=== PATIENT | male | born 1955 | race Caucasian/White ===

== ENCOUNTER 2024-11-30 16:29 | Inpatient (IN) | payer MEDICARE, SELFPAY ==
[2024-11-30] VITALS (16 sets, daily range): BP systolic 96–157; BP diastolic 60–91; BMI 36.3; BMI 35.0
--- NOTE | 2024-11-30 11:56 | ED.CVA ---
History of Present Illness
General
Chief Complaint: CVA/TIA Symptoms
Source: patient
Exam Limitations: none
Time Seen by Provider: 11/30/24 11:40
Onset of Stroke Symptoms
Onset of symptoms known: No
Time pt last seen normal is known: No
History of Present Illness
History of Present Illness:
69-year-old male with history of strokes [facility] with onset of dizziness and left arm weakness. This was during rehab today. He states the dizziness has resolved but the left arm weakness has persisted. He also notes a
facial droop on the left side has been present for about a week. He tells me he is on Coumadin. His last INR was checked today however he does not know the results. He is on this for a valve replacement. He denies chest pain or shortness of
breath. He denies any new leg weakness. He denies any vision change or slurred speech. No other complaints
Phy Exam
Physical Exam
Physical Exam:
General: Well-appearing male no acute respiratory distress
HEENT: Normocephalic atraumatic subtle left facial droop
Heart: Regular rate and rhythm
Lungs: Clear no wheeze
Neurologic exam: Alert and oriented x 3 subtle left facial droop noted. There is left arm drift noted on exam. No ataxia noted. The bilateral lower extremities have good strength. There is no neglect. Visual hill intact. No dysarthria or
aphasia.
Extremities: Mild edema bilateral lower extremities
Scores
NIH Stroke Score
Level of Consciousness: 0 - Alert
LOC Questions: 0-Answers both correctly
LOC Commands: 0-Performs both correctly
Best Horizontal Gaze: 0-Normal
Visual Hill: 0=Normal, no visual loss
Facial Palsy: 1=Minor paralysis
Motor - Right Arm: 0=No drift 10 seconds
Motor - Left Arm: 2=Partial vs. gravity
Motor - Right Le-No drift 5 seconds
Motor - Left Le-No drift 5 seconds
Limb Ataxia: 0-Absent
Sensation: 0-Normal
Best Language: 0-No aphasia
Dysarthria: 0-Normal
Extinction and Inattention: 0-No abnormality
NIH Total Score:: 3
Course
Orders/Labs/Results
Orders:
Orders
11/30/24 11:43
Electrocardiogram (*1) Urgent
Reason for Study: Other
Other Reason for Exam: Possible Stroke
11/30/24 11:44
EKG- Treatment ONCE
11/30/24 11:50
Complete Blood Count/With Diff Urgent
Comprehensive Metabolic Panel Urgent
PTT Urgent
Prothrombin Time Urgent
Troponin I Urgent
11/30/24 11:56
CT Head W/o Iv Contrast Urgent
Comment:
Reason For Exam: dizzy, left arm weakness
Abnormal Lab Results
11/30/24
11:50
MCHC 31.8 L g/dL
(33.0-37.0)
RDW 15.9 H %
(11.5-14.5)
Plt Count 124 L 10^3/uL
(130-400)
MPV 11.3 H fL
(7.4-10.4)
Absolute Monos (auto) 0.7 H 10^3/uL
(0.1-0.6)
Lymphocytes % 19.4 L %
(20.5-51.1)
Monocytes % 10.2 H %
(1.7-9.3)
PT 31.2 H Sec
(11.4-14.6)
APTT 39.4 H Sec
(23.4-35.0)
Carbon Dioxide 31 H mmol/L
(22-30)
BUN 25 H mg/dl
(9-20)
Creatinine 1.4 H mg/dL
(0.7-1.3)
11/30/24 11:50
11/30/24 11:50
Vital Signs
Initial and Last Documented VS:
Initial Vital Signs
Pulse Resp
71 14
11/30/24 11:43 11/30/24 11:43
Last Documented Vital Signs
Pulse Resp BP Pulse Ox
62 11 157/78 98
11/30/24 14:00 11/30/24 14:00 11/30/24 14:00 11/30/24 14:00
MDM/Problems Addressed
Differential Diagnosis Includes:
Patient presents with dizziness and left arm weakness. Exact onset of symptoms unknown as he has had a facial droop for about a week. The weakness today however could be new. Concern for possible TIA versus stroke. He is not a TNK candidate
given uncertain onset and anticoagulated state. INR is pending. Vital signs are stable. EKG shows a right bundle branch block with a rate of 74 no ischemic changes.
*Pulse Oximetry
Patient hypoxic: no
*Critical Care Note
Total Time (30-74mins, 75-104mins- exclusive of procedures): Not Applicable
Update Note
Update Note:
CT head shows chronic infarcts. INR 3.03
I suspect patient may have had another stroke in the recent past. Will admit to hospital. Discussed with emergency room attending. Not a TNK candidate secondary to uncertain onset and anticoagulated state
ED Attending Note
-
Portions of this chart may have been created with voice recognition software.� Occasional wrong word or��sound alike� substitutions may have occurred due to the inherent limitations of voice recognition software.
Discharge Plan
Departure
Patient Disposition: Admit
Date of Disposition: 11/30/24
Time of Disposition: 15:15
Presentation/result/management discussed w/ accepting MD/DO: Hospitalist
Discharge Problem:
Acute cerebrovascular accident (CVA)
Prescriptions:
No Action
furosemide [Lasix] 40 mg Tablet
40 mg PO DAILY
carvedilol [Coreg] 25 mg Tablet
25 mg PO BID
acetaminophen [Tylenol] 325 mg Tablet
650 mg PO Q4HPRN PRN (Reason: mild pain)
atorvastatin [Lipitor] 20 mg Tablet
20 mg PO QPM
albuterol sulfate 2.5 mg /3 mL (0.083 %) Solution For Nebulization
2.5 mg INHALATION R Q6HPRN PRN (Reason: sob)
hydralazine 25 mg Tablet
25 mg PO TID
aspirin 81 mg Tablet,Delayed Release (Dr/Ec)
81 mg PO DAILY
warfarin 3 mg Tablet
3 mg PO QPM
magnesium hydroxide [Milk of Magnesia] 400 mg/5 mL Suspension
2,400 mg PO [id number] PRN (Reason: constipation)
bisacodyl [Dulcolax (bisacodyl)] 10 mg Suppository
10 mg SD DAILYPRN PRN (Reason: if no bm aftr mom)
Fleet Enema 19-7 gram/118 mL Enema
118 ml SD DAILYPRN PRN (Reason: if no bm aftr dulcalax)
gabapentin 300 mg Capsule
300 mg PO TID
lisinopril 5 mg Tablet
5 mg PO DAILY
cholecalciferol (vitamin D3) [Vitamin D3] 125 mcg (5,000 unit) Tablet
125 mcg PO TH
menthol-zinc oxide [Moisture Barrier Ointment] 0.44-20.6 % Ointment
1 applic TOPICAL TIDPRN PRN (Reason: sacrum)
[place] 3 Fish Oil 900-1,400 mg Capsule,Delayed Release(Dr/Ec)
1 cap PO DAILY
duloxetine 30 mg Capsule, Delayed Rel Sprinkle
30 mg PO BID
Referrals:
Rusty Mclain MD [Family Provider]
Interventions
Interventions:
*Risk Screen - Suicide Last Done: 11/30/24 11:47
*Neglect/Abuse Screening Last Done: 11/30/24 11:47
ED- Pulmonary Assessment Last Done: 11/30/24 11:58
ED- Neurological Assessment Last Done: 11/30/24 11:58
ED- Cardiac Assessment Last Done: 11/30/24 11:58
Discharge Date and Time
Print Language: WOLOF
[2024-11-30 12:09] LABS: Hematocrit 51.6 % (39.0-52.0); Hemoglobin 16.4 g/dL (13.0-18.0); Mean Corp Hgb Conc. 31.8 g/dL (33.0-37.0); Mean Corpuscular Volume 88.2 fL (80.0-94.0); Nucleated Red Blood Cells % 0 % (-); Platelet Count 124 10^3/uL (130-400); Red Cell Dist. Width 15.9 % (11.5-14.5)
[2024-11-30 12:15] LABS: ALT (SGPT) 19 U/L (0-50); AST (SGOT) 23 U/L (17-59); Albumin 4.1 g/dl (3.5-5.0); Alkaline Phosphatase 65 U/L (38-126); Blood Urea Nitrogen 25 mg/dl (9-20); Calcium 9.1 mg/dl (8.4-10.2); Carbon Dioxide 31 mmol/L (22-30); Chloride 106 mmol/L (98-107); Estimated Creatinine Clearance 56 ml/min; Glucose 96 mg/dl (70-99); Potassium 4.1 mmol/L (3.5-5.1); Sodium 143 mmol/L (135-145); Total Protein 6.8 g/dl (6.3-8.2); eGFR 53.74
[2024-11-30 12:16] LABS: APTT 39.4 Sec (23.4-35.0); INR 3.03; PT 31.2 Sec (11.4-14.6)
[2024-11-30 12:26] LABS: Troponin I 0.013 ng/ml
--- NOTE | 2024-11-30 15:17 | CON.NEURO ---
Addendum entered and electronically signed by Jae Somers MD 11/30/24 16:31:
Studies reviewed.
I have personally examined the patient. I reviewed and agree with the SWITCH ADJUSTER's Note.
My addenda:
Awake, alert, interactive. No acute distress.
Speech intact.
Follows 2-step requests w/o difficulty. No tremor.
Extra-ocular movements grossly intact.
Facial movements full and symmetric. Hearing intact to normal conversational volume.
Normal UE movements bilaterally.
Neck: full ROM.
Chest: no dyspnea
Heart: no JVD
Ext: (-) Clubbing, (-) Cyanosis, (-) Edema
IMPRESSIONS/RECOMMENDATIONS:
Abrupt onset of left upper extremity weakness, resolved in a patient with prior history of stroke in approximately 2014. Records of that event are not available at this time.
Differential diagnosis includes TIA or recrudescence of prior stroke
Check MRI of brain
Check CTA of head and neck
Would continue the patient on current warfarin
Unclear reason for the use of aspirin 81 mg in this patient which if being utilized for stroke prevention, would actually represent a increased risk for hemorrhagic conversion and therefore would not continue
Continue atorvastatin
D/W patient / family
All questions answered.
Will continue to follow patient.
Original Note:
Documented by User: Shannon Martínez NP 11/30/24 16:11
Neuro Assessment/Plan
Assessment
69-year-old male with history of 2 strokes and 2 TIAs in the last 10 years on aspirin 81 mg and warfarin [facility] with abrupt onset of left arm weakness.
Head CT: Wedge-shaped focal area of volume loss and decreased density in the right anterolateral frontal lobe, appearance compatible with encephalomalacia, which is likely from old infarction.
9 mm focus of old infarction involving the lateral left lentiform nucleus. Slightly more anteriorly and inferiorly there is a smaller 4 mm focus of decreased density within the left lentiform nucleus which is likely an old lacunar infarct.
There are small less than 5 mm foci of decreased density within the right lentiform nucleus, likely representing small old lacunar infarcts, main differential consideration of prominent perivascular spaces.
No convincing CT evidence for a focal area of acute to subacute infarction.
Mild to moderate atrophy in this 69-year-old. Moderate leukomalacia, mainly periventricular. The callosal angle appears normal, and findings are not considered highly suggestive of normal pressure hydrocephalus. The right lateral ventricle is
slightly larger than the left, which is likely from hydrocephalus ex vacuo.
Plan
Impression: abrupt onset of LUE weakness most likely due to TIA/CVA
-check MRI brain without contrast to evaluate for stroke
-CTA head/neck
-BP goal is normotension.
-currently on aspirin and warfarin, check aspirin assay to see if he is a responder
-check hemoglobin A1C. Goal is normoglycemia.
-check LDL, goal LDL is <70, continue atorvastatin
-PT/OT/ST evaluations
-DVT prophylaxis
-continue neurochecks and NIHSS per unit guidelines
-education material to be provided
-consider neuropathy workup outpatient with EMG/NCS although will not change treatment
All questions encouraged and answered, plan of care discussed with Dr. Somers PA, patient and family
Consultation
Order
Date of Consultation: 11/30/24
Requesting Provider: hospitalist
Reason for Consult: LUE weakness
Subjective/Objective
Subjective Data
Date of Service: November 30, 2024
69-year-old male with history of 2 strokes and 2 TIAs in the last 10 years on aspirin 81 mg and warfarin presents from [facility] rehab on 11/30/2024 with abrupt onset of left arm weakness. According to patient and family, he has been
receiving therapy at [facility] for a year getting physical therapy for his neuropathy. He currently does not have a neurologist. Last Saturday family saw drooping of face on left. Today, was on the bike for 10 minutes and started having LUE
weakness and headache at 10 am. He is not able to quantify or describe his head pain just describes it as 'feeling heavy.' His last INR was checked today however he does not know the results. He is on this for a valve replacement. He denies chest
pain or shortness of breath. He denies any new leg weakness. Denies aphasia or dysarthria. Denies issues with vision or dizziness. In ED his NIHSS was 3 for LUE drift and left facial weakness. He is not a TNK candidate given uncertain onset and
anticoagulated state. Head CT with focal areas of old infarction, atrophy and leukomalacia. No CT evidence for acute intracranial abnormality. Current NIHSS 1 for left facial weakness, however no LUE drift noted on exam. Current INR 3.03. Vital
signs have been stable.
Objective Data
Vital Signs
Pulse Resp BP Pulse Ox
62 11 157/78 98
11/30/24 14:00 11/30/24 14:00 11/30/24 14:00 11/30/24 14:00
Lab Results
11/30/24 11:50
11/30/24 11:50
PT 31.2 Sec (11.4-14.6) H 11/30/24 11:50
INR 3.03 11/30/24 11:50
APTT 39.4 Sec (23.4-35.0) H 11/30/24 11:50
Sodium 143 mmol/L (135-145) 11/30/24 11:50
Potassium 4.1 mmol/L (3.5-5.1) 11/30/24 11:50
BUN 25 mg/dl (9-20) H 11/30/24 11:50
Glucose 96 mg/dl (70-99) 11/30/24 11:50
Calcium 9.1 mg/dl (8.4-10.2) 11/30/24 11:50
Patient Allergies
No Known Allergies Allergy (Verified 11/30/24 11:42)
CVA Assessment
Onset of Stroke Symptoms
Onset of symptoms known: Yes
Date of onset of symptoms: 11/30/24
Time of onset of symptoms: 10:00
Time pt last seen normal is known: Yes
Date last time pt seen normal: 11/30/24
Time last time pt seen normal: 10:00
NIH Stroke Score
Level of Consciousness: 0 - Alert
LOC Questions: 0-Answers both correctly
LOC Commands: 0-Performs both correctly
Best Horizontal Gaze: 0-Normal
Visual Lacey: 0=Normal, no visual loss
Facial Palsy: 1=Minor paralysis
Motor - Right Arm: 0=No drift 10 seconds
Motor - Left Arm: 0=No drift 10 seconds
Motor - Right Le-No drift 5 seconds
Motor - Left Le-No drift 5 seconds
Limb Ataxia: 0-Absent
Sensation: 0-Normal
Best Language: 0-No aphasia
Dysarthria: 0-Normal
Extinction and Inattention: 0-No abnormality
NIH Total Score:: 1
Tenecteplase Contraindications
Inclusion and Exclusion criteria reviewed: Yes
Reasons for NON-Tx with Thrombolytics ABSOLUTE Exclusions: Patient taking oral anticoagulant and last dose within 48 hours
IAT Contraindications: >6 hrs from onset/last seen normal and NIHSS < 6
Modified Mahesh Score (MRS)
-
Modified Mahesh Scale (mRS): Moderate disability. Requires some help, able to walk unassisted.
Score: 3
Physical Exam
-
General: No Apparent Distress and Comfortable
HEENT: Normocephalic, Atraumatic and Anicteric
Neck: Full Range of Motion
Respiratory: No Dyspnea
Cardiac: No JVD
GI: Non-distended
Skin: Other (venous stasis dermatitis)
Extremities: No Clubbing, No Cyanosis and No Edema
Psych: Unremarkable
Extended Neurological Exam
Mood & Affect: Mood Unremarkable
Attention Span & Concentration: Awake, Alert, Interactive and No Difficulty with 2 Step Request
Memory: Vague and Incomplete Historian
Tremor: Hand Tremor Absent and Head Tremor Absent
Involuntary Movement: None
Speech: Quality Unremarkable, Quantity Unremarkable and Rate of Production Unremarkable
Cranial Nerve II: Left Eye: Visual Lacey Grossly Intact
Cranial Nerve II: Right Eye: Visual Lacey Grossly Intact
Cranial Nerves III, IV, : Extraocular Movement: Other (difficulty tracking )
Cranial Nerve VII: Facial Symmetry: Reduced
Cranial Nerve VIII: Hearing: Unremarkable Hearing to Normal Conversational Volume
Muscle Strength, Overall: Full Throughout
Pronator Drift: No Drift in Upper Extremities and No Drift in Lower Extremities
Coordination: [id number] Testing Unremarkable and Reaches for Objects without Difficulty
Data Reviewed
-
CT Head: Report Reviewed and Image Reviewed
MRI Head: Ordered
Labs: Report Reviewed
Lipid Profile: Ordered
HgbA1C: Ordered
Reviewed with: Physician, Physician Building Associate, Patient and Family
Old Records: Summarized
Medications
-
Home Medications
�Medication �Instructions �Recorded
acetaminophen 325 mg tablet 650 mg PO Q4HPRN PRN mild pain 11/30/24
(Tylenol)
albuterol sulfate 2.5 mg/3 mL 2.5 mg inhalation R Q6HPRN PRN sob 11/30/24
(0.083 %) solution for nebulization
aspirin 81 mg tablet,delayed 81 mg PO DAILY 11/30/24
release
atorvastatin 20 mg tablet (Lipitor) 20 mg PO QPM 11/30/24
bisacodyl 10 mg rectal suppository 10 mg AR DAILYPRN PRN if no bm 11/30/24
(Dulcolax (bisacodyl)) aftr mom
carvedilol 25 mg tablet (Coreg) 25 mg PO BID 11/30/24
cholecalciferol (vitamin D3) 125 125 mcg PO TH 11/30/24
mcg (5,000 unit) tablet (Vitamin
D3)
duloxetine 30 mg capsule,delayed 30 mg PO BID 11/30/24
release sprinkle
furosemide 40 mg tablet (Lasix) 40 mg PO DAILY 11/30/24
gabapentin 300 mg capsule 300 mg PO TID 11/30/24
hydralazine 25 mg tablet 25 mg PO TID 11/30/24
lisinopril 5 mg tablet 5 mg PO DAILY 11/30/24
magnesium hydroxide 400 mg/5 mL 2,400 mg PO [id number] PRN 11/30/24
oral suspension (Milk of Magnesia) constipation
menthol 0.44 %-zinc oxide 20.6 % 1 applic topical TIDPRN PRN sacrum 11/30/24
topical ointment (Moisture Barrier
Ointment)
omega 4-yoy-mnb-fish oil 900 1 cap PO DAILY 11/30/24
mg-1,400 mg capsule,delayed release
sodium phosphates 19 gram-7 118 ml AR DAILYPRN PRN if no bm 11/30/24
gram/118 mL enema (Fleet Enema) aftr dulcalax
warfarin 3 mg tablet 3 mg PO QPM 11/30/24
Past History
Past History
ED Past Medical History: CVA and Other (osteoarthritis of left knee, neuropathy )

Documented by User: Jae Somers MD 11/30/24 16:25
CVA Assessment
NIH Stroke Score
NIH Total Score:: 1
Modified Mahesh Score (MRS)
-
Score: 3
[2024-11-30 16:32] LABS: HDL Cholesterol 37 mg/dl; LDL Cholesterol, Calculated 56 mg/dl; Very Low Density Lipoprotein 44 mg/dl (0-30)
--- NOTE | 2024-11-30 17:23 | HPS.HSE ---
Addendum entered and electronically signed by Rodger Smith MD, Resident 12/03/24 17:43:
Allergies
Allergy/AdvReac Type Severity Reaction Status Date / Time
No Known Allergies Allergy Verified 11/30/24 11:42
Home Medications
acetaminophen 325 mg tablet (Tylenol) 650 mg PO Q4HPRN PRN mild pain 11/30/24
albuterol sulfate 2.5 mg/3 mL (0.083 %) solution for nebulization 2.5 mg inhalation R Q6HPRN PRN sob 11/30/24
atorvastatin 20 mg tablet (Lipitor) 20 mg PO QPM High Cholesterol 11/30/24
bisacodyl 10 mg rectal suppository (Dulcolax (bisacodyl)) 10 mg OK DAILYPRN PRN if no bm aftr mom 11/30/24
carvedilol 25 mg tablet (Coreg) 25 mg PO BID Heart Failure 11/30/24
cholecalciferol (vitamin D3) 125 mcg (5,000 unit) tablet (Vitamin D3) 125 mcg PO TH Supplement 11/30/24
duloxetine 30 mg capsule,delayed release sprinkle 30 mg PO BID Neurological Condition 11/30/24
furosemide 40 mg tablet (Lasix) 40 mg PO DAILY Fluid Retention/Swelling 11/30/24
gabapentin 300 mg capsule 300 mg PO TID Neurological Condition 11/30/24
hydralazine 25 mg tablet 25 mg PO TID Blood Pressure 11/30/24
lisinopril 5 mg tablet 5 mg PO DAILY Blood Pressure 11/30/24
Held on 12/01/24. Instructions: Resume on 12/11/24. Please follow-up with PCP before restarting lisinopril.
magnesium hydroxide 400 mg/5 mL oral suspension (Milk of Magnesia) 2,400 mg PO [id number] PRN constipation 11/30/24
menthol 0.44 %-zinc oxide 20.6 % topical ointment (Moisture Barrier Ointment) 1 applic topical TIDPRN PRN sacrum 11/30/24
omega 8-dtt-[id number]-fish oil 900 mg-1,400 mg capsule,delayed release 1 cap PO DAILY Supplement 11/30/24
sodium phosphates 19 gram-7 gram/118 mL enema (Fleet Enema) 118 ml OK DAILYPRN PRN if no bm aftr dulcalax 11/30/24
warfarin 3 mg tablet 3 mg PO QPM Blood Clot Prevention/Tx 11/30/24
Addendum entered and electronically signed by Arnaud Apodaca MD 11/30/24 21:12:
Attending Addendum-
I performed a history and physical exam of the patient and discussed his management with the resident. I reviewed the resident's note and agree with the documented findings and plan of care CC/HPI- presents from [facility] s/p presyncopal event
/ dizziness and worsening left arm weakness during PT today @ 11AM. Per patient his left arm is chronically weak but mildly worse than usual. Reports of having facial droop x 1 week but patient denies. Full 12 point ROS reviewed and negative
except as documented Exam- vitals reviewed in EMR GEN-NAD heart RRR 3/6 SM @ RUSB and apex Lungs clear no W/R/R abd soft LE no edema Neuro AAO x2-3 MS 4/5 LUE 5/5 all others sensation intact neg cerebellar deficits pulses intact
Plan:
# LUE Weakness
- admit to tele
- r/o TIA/CVA
- check MRI brain
- hold asa, cont warfarin, check verify now
- check CTA head/neck
- neuro checks PT OT speech
- permissive HTN cont home meds
# ROMÁN on CKD 3a?
- unclear baseline
- hold lisinopril for now
- repeat BMP in am verify with facility/pcp re baseline
# CHF
- unclear type
- check TTE
- cont lasix
- daily weights strict I and O
# H/O MV repair with possible h/o A fib
- check 2D ECHO
- cont Coumadin
- maintain INR 2-3
- repeat INR in am
# HTN
- cont home meds hydralazine
- hold lisinopril for now
# HLD- cont atorvastatin
# PN- cont gabapentin
# Depression-cont duloxetine
DVT-Coumadin
CODE-Full
Dispo back to [facility] when able
ACP
Patient consented to discuss, was alone, time spent explanation of advance directives, changes in health status, patient�s health care wishes if the patient becomes unable to make health decisions, goals of care, code status, and prognosis 'do
everything only in emergency'- 16 minutes
Time spent coordinating care, review of plan of care with resident, personally reviewed previous records in EMR, med rec, labs, radiology, d/w nursing, family total time documented is exclusive of any additional time listed that was spent in advance
care planning discussion -� 75 minutes
Original Note:
Family Physician
-
Family Physician: Rusty Mclain
Chief Complaint
-
Weakness of left arm
History of Present Illness
69 yo M PMH of recurrent strokes/TIAs, mitral valve repair on warfarin (INR 3.0), HTN, HLD, peripheral neuropathy reports left arm weakness at ~11:00 AM today. That being said, he also endorses that his left arm has been weaker than the right
chronically now.
The arm weakness occurred while he was doing rehabilitation exercises (exercise bike) at the SNF/rehab facility.
He also reports that he had a facial droop that has been on/off over the past week.
He otherwise denies weakness anywhere else or diminished sensation, apart from peripheral neuropathy.
He denies any chest pain, palpitations, dyspnea. He denies any difficulty with bowel/bladder function or incontinence.
Of note, his son, Raza is medical power of criminal attorney.
Medical History
Past Medical History
Past Medical History: Reports HTN, Hypercholesterolemia and Other (peripheral neuropathy)
Additional Past Medical History:
CKD stage 3, paroxysmal atrial fibrillation, major depressive disorder, osteoarthritis, LIZETH
Past Surgical History: Reports Other (mitral valve repair (2015))
Social History
Tobacco: Former Smoker (quit ~50 years ago)
Alcohol: Occasional
Drug: None
Family History
Family History: Other
Allergies / Home Medications
Allergies reflects when Allergies were last updated in [employer].
NKDA
Home Medications with original date entered in [employer]
home medications as listed in the chart
Allergy/Medication List:
NKDA
Review of Systems
-
History Source: Patient and Family
Constitutional: Reports No Symptoms
EENT: Reports No Symptoms
Respiratory: Reports No Symptoms
Cardiac: Reports No Symptoms
Abdomen/GI: Reports No Symptoms
: Reports No Symptoms
Musculoskeletal: Reports No Symptoms
Neurological: Reports Weakness (L upper extremity )
Endocrine: Reports No Symptoms
Hematologic/Lymphatic: Reports No Symptoms
Psych: Reports Calm
Physical Exam
Vital Signs
Vital Signs
Temp Pulse Resp BP Pulse Ox
97.9 F 61 14 115/83 98
11/30/24 15:52 11/30/24 15:52 11/30/24 15:52 11/30/24 15:52 11/30/24 15:52
Physical Exam
General: No Apparent Distress
HEENT: NormoCephalic and Anicteric
Respiratory: Clear
Cardiac: S1/S2 and Other (no murmurs on my exam)
GI: Soft and Non Tender
Musculoskeletal: Other (trace-1+ peripheral edema in left lower extremity nonpitting)
Skin: Warm and Dry
Neuro: AO x 3, No Sensory Deficits and Other (EOMI, PERRLA, able to close eyes/smile, slight leftward deviation of tongue, L arm inventory transcriber strength < R arm inventory transcriber strength, no pronator drift, heel to henry intact while lying supine, finger to nose intact
coordination intact )
Psych: Calm
Laboratory Results
-
11/30/24 11:50
11/30/24 11:50
Laboratory Results
PT 31.2 Sec (11.4-14.6) H 11/30/24 11:50
INR 3.03 11/30/24 11:50
APTT 39.4 Sec (23.4-35.0) H 11/30/24 11:50
Total Bilirubin 0.9 mg/dl (0.2-1.3) 11/30/24 11:50
AST 23 U/L (17-59) 11/30/24 11:50
ALT 19 U/L (0-50) 11/30/24 11:50
Alkaline Phosphatase 65 U/L (38-126) 11/30/24 11:50
Troponin I 0.013 ng/ml 11/30/24 11:50
studies:
EKG 11/30/[address] noncon: 11/30/2024
IMPRESSION:
Focal areas of old infarction as described.
Atrophy and leukomalacia.
No CT evidence for acute intracranial abnormality.
If there is high clinical concern for acute to subacute infarction and further imaging evaluation is desired, consideration for MRI of the brain.
Impression/Plan
-
In summary, this is a 69 yo M with PMH of prior strokes/TIAs, mitral valve repair on warfarin (INR 3.0), HTN, HLD, paroxysmal atrial fibrillation, peripheral neuropathy (among other medical conditions) who is presenting with left arm weakness.
the ddx for left arm weakness can include several etiologies: TIA, CVA, peripheral neuropathy, musculoskeletal strain, myasthenia gravis.
However, it is unclear the exact time of onset since patient endorses chronic weakness of left arm along with a facial droop that is subjectively reported for the past week. Objectively, no facial droop on my assesment. Nonetheless, the patient is
on warfarin, therapeutic at INR of 3.0. For all the above reasons, TNK is likely not appropriate even if this were to be a true cerebrovascular incident.
Myasthenia gravis can be considered if it were fatigable weakness; however, the patient did not appear to endorse fatigable weakness, speech/swallowing dysfunction, or droopy eyelids/ptosis. Given hx of HLD, HTN, and involvement of left arm, ACS can
also be considered. However, we are reassured against this etiology by a normal troponin and unremarkable EKG.
He has a history of peripheral neuropathy, which may also be contributing. A component of musculoskeletal strain cannot be excluded either.
The most likely etiology is a TIA/CVA in the setting of chronic weakness of L arm, and/or musculoskeletal strain in setting of exericse.
Hence, for assessment & plan,
# Left arm weakness
- Neurology has been consulted
- CT Head noncon noted no acute process, but prior infarcts
- Consider US Neck Carotid due to reported hsitory of right carotid artery stenosis
- f/u neurology reccs
- MRI brain no contrast
- CTA Head/Neck
- serial neurological checks
- Check HbA1c
- Lipid panel
- PT/OT/ST evaluations
- BP goal: normotension
- continue atorvastatin
- discontinue aspirin given warfarin use, risk of hemorrhage
# Paroxysmal atrial firbillation
# hx of mitral valve repair
- continue warfarm
- monitor INR
# Chronic issues
HTN - continue home meds coreg, lasix, hydralazine; hold lisinopril given Cr 1.4
HLD - continue atorvastatin
MDD - continue duloxetine
Peripheral neuropathy - continue gabapentin
Code status: Full
Medical power of criminal attorney: Raza Sanches
Diet: Cholesterol lowering
DVT ppx: SCDs
Disposition: pending further workup
[2024-11-30] MEDS: COUMADIN 3 MG PO (18:32)
[2024-11-30] MEDS: LIPITOR 20 MG PO (18:32)
[2024-11-30] MEDS: APRESOLINE 25 MG PO ×2 (18:32→21:03)
[2024-11-30] MEDS: NEURONTIN 300 MG PO ×2 (18:32→21:03)
[2024-11-30] MEDS: CYMBALTA DELAYED RELEASE 30 MG PO (21:02)
[2024-11-30] MEDS: DESENEX/MITRAZOL/ZEASORB 1 APPLIC TOPICAL (21:02)
[2024-11-30] MEDS: COREG 25 MG PO (21:02)
[2024-11-30 22:03] LABS: Hepatitis C Antibody Negative (Negative)
[2024-12-01 02:43] VITALS: BP 118/71
[2024-12-01 07:05] VITALS: BP 118/66
--- NOTE | 2024-12-01 07:08 | W.PN.HOSP.TC ---
Addendum entered and electronically signed by Arnaud Apodaca MD 12/01/24 22:49:
Attending Addendum-I saw and evaluated the patient. I reviewed the resident�s note and agree with findings and plan as documented in the resident�s note. Sub: left arm is chronically weak but tape transferrer strength greatly improved. No neck pain. Wants to go
home. no neuro sxs. Full 12 point ROS reviewed and negative except as documented Exam- vitals reviewed in EMR GEN-NAD heart RRR 3/6 SM @ RUSB and apex Lungs clear no W/R/R abd soft LE no edema Neuro AAO x2-3 MS 4/5 LUE 5/5 all others sensation
intact neg cerebellar deficits pulses intact tape transferrer strength 5/5 LUE
Plan:
# LUE Weakness- cervical SC compression
- admit to tele
- not TIA/CVA
- MRI brain
-No evidence for acute to subacute infarction.
Multiple regions of old infarction as described.
Mild to moderate atrophy. Moderate to severe T2 and FLAIR white matter hyperintensities, commonly seen with aging and usually attributed to small vessel ischemic disease.
Numerous foci of cerebral microbleeds. Patient has a reported history of Coumadin therapy.
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
CTA Head/Neck-
NECK CTA:
1. COMPLETE OCCLUSION of the distal V3 extradural segment of the RIGHT VERTEBRAL ARTERY.
2. Severe hypoplasia of the entire cervical segment of the right vertebral artery.
3. Less than 50% diameter stenosis in the dominant left vertebral artery.
4. Patent stent in the proximal right ICA.
5. Less than 50% diameter stenosis in the proximal left ICA.
6. SEVERE SPINAL CORD COMPRESSION and central canal stenosis at C5/C6.
7. Moderate spinal cord compression and central canal stenosis at C3/C4 and C4/C5.
8. Severe bilateral neural foraminal narrowing at C3/C4, C4/C5, and C5/C6.
HEAD CTA:
1. 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
2. Severe calcific atherosclerotic plaque in the left intracranial vertebral artery.
3. Moderate calcific atherosclerotic plaque in the intracranial ICAs.
4. No CTA evidence for anterior, middle, or posterior cerebral artery stenosis or occlusion.
5. Severe white matter leukoaraiosis in the frontal and parietal lobes.
6. Small chronic transcortical infarct in the anterolateral right frontal lobe.
7. Chronic lacunar infarcts in the left putamen and in both thalami.
8. Tiny chronic infarcts in both cerebellar hemispheres.
9. Mild diffuse cerebral and cerebellar volume loss.
- DC asa, cont warfarin
- f/u Neuro and NS as OP d/w neuro ok for DC
- PT OT speech evals completed
# CKD 3a
- stable per patient
- unclear baseline
- hold lisinopril for now
# CHF-HFpEF
- check TTE
- cont lasix
- daily weights strict I and O
# H/O MV repair with possible h/o A fib
- 2D ECHO
1. Normal left ventricular size, wall thickness and systolic function. No regional wall motion abnormalities are seen.
2. Left ventricular systolic function is 55-60% by visual assesment.
3. Mild aortic stenosis.
- cont Coumadin
- maintain INR 2-3
- repeat INR in am
# HTN
- cont home meds hydralazine
- lisinopril held
# HLD- cont atorvastatin
# PN- cont gabapentin
# Depression-cont duloxetine
DVT-Coumadin
CODE-Full
Dispo back to [facility] today
Time spent coordinating care, DC planning, review of DC plan of care with resident, transition of care, review of records, med rec/scripts sent electronically, consults, notes, d/w consultants, nursing, family, and CM� 32 mins >50% of this time was
devoted to counseling and coordination of care
Original Note:
Today's Communication/Plan
-
- discharge today
- INR 12/02
- BMP 12/08
- recommend follow-up outpatient neurosurgery and neurology
Assessment / Plan
Assessment / Plan
# Left arm weakness most likely due to cervical spinal stenosis
- MRI brain no evidence of acute or subacute infarct but showed concern for microbleeds/amyloid angiopathy
- CTA Head/neck shows vessel occlusion of right vertebral but severe spinal cord compression and central canal stenosis at C5/C6.
- ultimately, the likely etiology of the initial presentation is the cervical spinal stenosis (weakness, numbness and tingling in L arm)
- HbA1c 5.2
- Lipid panel per above
- Normotensive this admission
- Medications adjustments in consultation with neurology
- continue atorvastatin
- discontinue aspirin given warfarin use, risk of hemorrhage
- continue warfarin
- lisinopril is being held until he follows-up [facility] outpatient and with PCP
- recommend follow-up with neurosurgery/spinal surgery and neurology in outpatient setting
# Paroxysmal atrial firbillation
# hx of mitral valve repair
- continue warfarm
- monitor INR
# Chronic issues
HTN - continue home meds coreg, lasix, hydralazine; hold lisinopril given Cr 1.5
HLD - continue atorvastatin
MDD - continue duloxetine
Peripheral neuropathy - continue gabapentin
Code status: Full
Medical power of instructional design consultant: Raza Sanches
Diet: Cholesterol lowering
DVT ppx: SCDs
Disposition: today
Anticipated Discharge: Today
Subjective/Interval History
-
Date of Service: December 01, 2024
he feels well this morning. headache resolved, denies chest pain, dyspnea. He feels that the weakness/numbness has improved
Objective Data
-
Labs:
Laboratory Results
12/01/24
06:16
WBC Pending
Hgb Pending
Hct Pending
Plt Count Pending
PT Pending
INR Pending
Sodium Pending
Potassium Pending
Chloride Pending
Carbon Dioxide Pending
BUN Pending
Creatinine Pending
Glucose Pending
Calcium Pending
WBC 6.6
Hgb 15.8
Na 143
K 4.3
Cr 1.5
Lipid panel:
Triglycerides 196
Total cholesterol 134
LDL 62
VLDL 39
HDL 33
HbA1c 5.2
INR 3.0
brain MRI 12/01/2024:
IMPRESSION: No evidence for acute to subacute infarction.
Multiple regions of old infarction as described.
Mild to moderate atrophy. Moderate to severe T2 and FLAIR white matter hyperintensities, commonly seen with aging and usually attributed to small vessel ischemic disease.
Numerous foci of cerebral microbleeds. Patient has a reported history of Coumadin therapy.
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
CTA Head neck 12/01/2024:
NECK CTA:
1. COMPLETE OCCLUSION of the distal V3 extradural segment of the RIGHT VERTEBRAL ARTERY.
2. Severe hypoplasia of the entire cervical segment of the right vertebral artery.
3. Less than 50% diameter stenosis in the dominant left vertebral artery.
4. Patent stent in the proximal right ICA.
5. Less than 50% diameter stenosis in the proximal left ICA.
6. SEVERE SPINAL CORD COMPRESSION and central canal stenosis at C5/C6.
7. Moderate spinal cord compression and central canal stenosis at C3/C4 and C4/C5.
8. Severe bilateral neural foraminal narrowing at C3/C4, C4/C5, and C5/C6.
HEAD CTA:
1. 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
2. Severe calcific atherosclerotic plaque in the left intracranial vertebral artery.
3. Moderate calcific atherosclerotic plaque in the intracranial ICAs.
4. No CTA evidence for anterior, middle, or posterior cerebral artery stenosis or occlusion.
5. Severe white matter leukoaraiosis in the frontal and parietal lobes.
6. Small chronic transcortical infarct in the anterolateral right frontal lobe.
7. Chronic lacunar infarcts in the left putamen and in both thalami.
8. Tiny chronic infarcts in both cerebellar hemispheres.
9. Mild diffuse cerebral and cerebellar volume loss.
TTE 12/01/2024:
SUMMARY
1. Normal left ventricular size, wall thickness and systolic function. No regional wall motion abnormalities are seen.
2. Left ventricular systolic function is 55-60% by visual assesment.
3. Mild aortic stenosis.
Vital Signs:
Vital Signs
Temp Pulse Resp BP Pulse Ox
98.0 F 62 16 118/71 97
12/01/24 02:43 12/01/24 02:43 12/01/24 02:43 12/01/24 02:43 12/01/24 02:43
Review of Systems
-
History Source: Patient
Respiratory: Reports No Symptoms
Cardiac: Reports No Symptoms
Abdomen/GI: Reports No Symptoms
Genitourinary: Reports No Symptoms
Musculoskeletal: Reports No Symptoms
Neuro: Reports Headache (resolved) and Weakness (improved L arm weakness)
Physical Exam
-
General: No Apparent Distress
HEENT: Normocephalic and Atraumatic
Respiratory: Clear to Auscultation
Cardiac: Regular Rhythm
GI: Soft and Nontender
Skin: Warm and Dry
Neuro: AO x 3 and Other (L arm tape transferrer strength weaker than L, but stronger than yesterday)
Psych: Calm
[2024-12-01 07:17] LABS: INR 3.02; PT 31.2 Sec (11.4-14.6)
[2024-12-01 07:36] LABS: Hematocrit 49.6 % (39.0-52.0); Hemoglobin 15.8 g/dL (13.0-18.0); Mean Corp Hgb Conc. 31.9 g/dL (33.0-37.0); Mean Corpuscular Volume 88.6 fL (80.0-94.0); Platelet Count 115 10^3/uL (130-400); Red Cell Dist. Width 15.8 % (11.5-14.5)
[2024-12-01 07:48] LABS: Blood Urea Nitrogen 26 mg/dl (9-20); Calcium 9.1 mg/dl (8.4-10.2); Carbon Dioxide 34 mmol/L (22-30); Chloride 104 mmol/L (98-107); Estimated Creatinine Clearance 51 ml/min; Glucose 86 mg/dl (70-99); HDL Cholesterol 33 mg/dl; LDL Cholesterol, Calculated 62 mg/dl; Potassium 4.3 mmol/L (3.5-5.1); Sodium 143 mmol/L (135-145); Very Low Density Lipoprotein 39 mg/dl (0-30); eGFR 49.47
[2024-12-01 08:01] LABS: Glycohemoglobin (HgbA1c) 5.2 % (4.0-5.6)
[2024-12-01] MEDS: DESENEX/MITRAZOL/ZEASORB 1 APPLIC TOPICAL (08:12)
[2024-12-01] MEDS: COREG 25 MG PO (08:13)
[2024-12-01] MEDS: CYMBALTA DELAYED RELEASE 30 MG PO (08:13)
[2024-12-01] MEDS: APRESOLINE 25 MG PO (08:14)
[2024-12-01] MEDS: LASIX 40 MG PO (08:14)
[2024-12-01] MEDS: NEURONTIN 300 MG PO ×2 (08:14→16:09)
[2024-12-01 08:42] VITALS: BP 125/82; PULSE 61; O2SAT 99
[2024-12-01 08:49] VITALS: BP 125/82; PULSE 61; O2SAT 99
--- NOTE | 2024-12-01 09:28 | W.PN.NEURO.1 ---
Today's Communication / Plan
-
Outpatient evaluation by neurosurgery to evaluate for spinal cord decompression at C5-6 and higher levels following outpatient MRI of cervical spine
BP goal is normotension.
Continue warfarin
Would discontinue aspirin due to risk of hemorrhagic conversion with the use of this therapy with warfarin
Neuro Assessment/Plan
Assessment
69-year-old male with history of 2 strokes and 2 TIAs in the last 10 years on aspirin 81 mg and warfarin presents from [facility] on 11/30/2024 with abrupt onset of left arm weakness.
Head CT: Wedge-shaped focal area of volume loss and decreased density in the right anterolateral frontal lobe, appearance compatible with encephalomalacia, which is likely from old infarction.
9 mm focus of old infarction involving the lateral left lentiform nucleus. Slightly more anteriorly and inferiorly there is a smaller 4 mm focus of decreased density within the left lentiform nucleus which is likely an old lacunar infarct.
There are small less than 5 mm foci of decreased density within the right lentiform nucleus, likely representing small old lacunar infarcts, main differential consideration of prominent perivascular spaces.
No convincing CT evidence for a focal area of acute to subacute infarction.
Mild to moderate atrophy in this 69-year-old. Moderate leukomalacia, mainly periventricular. The callosal angle appears normal, and findings are not considered highly suggestive of normal pressure hydrocephalus. The right lateral ventricle is
slightly larger than the left, which is likely from hydrocephalus ex vacuo.
NECK CTA:
1. COMPLETE OCCLUSION of the distal V3 extradural segment of the RIGHT VERTEBRAL ARTERY.
2. Severe hypoplasia of the entire cervical segment of the right vertebral artery.
3. Less than 50% diameter stenosis in the dominant left vertebral artery.
4. Patent stent in the proximal right ICA.
5. Less than 50% diameter stenosis in the proximal left ICA.
6. SEVERE SPINAL CORD COMPRESSION and central canal stenosis at C5/C6.
7. Moderate spinal cord compression and central canal stenosis at C3/C4 and C4/C5.
8. Severe bilateral neural foraminal narrowing at C3/C4, C4/C5, and C5/C6.
HEAD CTA:
1. 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
2. Severe calcific atherosclerotic plaque in the left intracranial vertebral artery.
3. Moderate calcific atherosclerotic plaque in the intracranial ICAs.
4. No CTA evidence for anterior, middle, or posterior cerebral artery stenosis or occlusion.MRI of brain: Failed to demonstrate acute abnormality and instead demonstrated cerebral microbleed's suggestive of amyloid angiopathy and old regions of
cerebral infarction
Impression: abrupt onset of LUE weakness most likely due to amyloid angiopathy although a clear area of acute ischemic injury is not evident
Differential diagnosis includes his severe cord compression at C5-6
Plan
Outpatient evaluation by neurosurgery to evaluate for spinal cord decompression at C5-6 and higher levels following outpatient MRI of cervical spine
BP goal is normotension.
Continue warfarin
Would discontinue aspirin due to risk of hemorrhagic conversion with the use of this therapy with warfarin
continue atorvastatin
Rehabilitation evaluations
OK DVT prophylaxis
Patient should follow-up with his usual outpatient neurologist
Subjective/Objective
Subjective Data
Date of Service: December 01, 2024
Returned to usual baseline since this AM.
Objective Data
Vital Signs
Temp Pulse Resp BP Pulse Ox
36.4 C 47 16 118/66 98
12/01/24 07:05 12/01/24 07:05 12/01/24 07:05 12/01/24 07:05 12/01/24 07:05
Lab Results
12/01/24 06:16
12/01/24 06:16
PT 31.2 Sec (11.4-14.6) H 12/01/24 06:16
INR 3.02 12/01/24 06:16
APTT 39.4 Sec (23.4-35.0) H 11/30/24 11:50
Sodium 143 mmol/L (135-145) 12/01/24 06:16
Potassium 4.3 mmol/L (3.5-5.1) 12/01/24 06:16
BUN 26 mg/dl (9-20) H 12/01/24 06:16
Glucose 86 mg/dl (70-99) 12/01/24 06:16
Calcium 9.1 mg/dl (8.4-10.2) 12/01/24 06:16
LDL Cholesterol, Calc 62 mg/dl 12/01/24 06:16
Patient Allergies
No Known Allergies Allergy (Verified 11/30/24 11:42)
Data Reviewed
-
CT-A: Report Reviewed
MRI Head: Report Reviewed
Labs: Report Reviewed
Reviewed with: Physician and Nurse Practioner
Old Records: Summarized
Past History
Past History
ED Past Medical History: CVA and Other (osteoarthritis of left knee, neuropathy )
Medications
-
Medications:
Generic Name Dose Route Start Last Admin
Trade Name Freq PRN Reason Stop Dose Admin
Acetaminophen 650 mg 11/30/24 17:49
Acetaminophen 650 Mg Rectal Suppository RECTAL 12/28/24 17:48
Q4HPRN PRN
MORRELL, mild pain, or temp >100.4F
Acetaminophen 650 mg 11/30/24 17:49
Acetaminophen 325 Mg Tablet PO 12/28/24 17:48
Q4HPRN PRN
MORRELL, mild pain, or temp >100.4F
Albuterol Sulfate 2.5 mg 11/30/24 17:49
Albuterol Nebs 2.5 Mg/3 Ml Ampul INH
R Q6HPRN PRN
sob
Protocol
Atorvastatin Calcium 20 mg 11/30/24 18:00 11/30/24 18:32
Atorvastatin (Lipitor) 20 Mg Tablet PO 12/28/24 17:59 20 mg
QPM JAVIER Administration
Bisacodyl 10 mg 11/30/24 17:49
Bisacodyl 10 Mg Rectal Suppository RECTAL 12/28/24 17:48
DAILYPRN PRN
if no bm aftr mom
Carvedilol 25 mg 11/30/24 20:00 12/01/24 08:13
Carvedilol 25 Mg Tablet PO 12/28/24 19:59 25 mg
BID JAVIER Administration
Duloxetine HCl 30 mg 11/30/24 20:00 12/01/24 08:13
Duloxetine Delayed Release 30 Mg Capsule PO 12/28/24 19:59 30 mg
BID JAVIER Administration
Furosemide 40 mg 12/01/24 08:00 12/01/24 08:14
Furosemide 40 Mg Tablet PO 12/29/24 07:59 40 mg
DAILY JAVIER Administration
Gabapentin 300 mg 11/30/24 17:49 12/01/24 08:14
Gabapentin 300 Mg Capsule PO 12/28/24 17:48 300 mg
TID JAVIER Administration
Hydralazine HCl 25 mg 11/30/24 17:49 12/01/24 08:14
Hydralazine 25 Mg Tablet PO 12/28/24 17:48 25 mg
TID JAVIER Administration
Magnesium Hydroxide 30 ml 11/30/24 17:49
Milk Of Magnesia 30 Ml Cup PO 12/28/24 17:48
[id number] PRN
constipation
Miconazole Nitrate 0 applic 11/30/24 20:00 12/01/24 08:12
Miconazole Powder Bottle TOPICAL 12/28/24 19:59 1 applic
BID JAVIER Administration
Sodium Biphosphate/Sodium Phosphate 135 ml 11/30/24 17:49
Fleet Phosphate Enema (Adult) 135 Ml Bottle RECTAL 12/28/24 17:48
DAILYPRN PRN
if no bm aftr dulcalax
Sodium Chloride 0 flush 11/30/24 18:00
Sodium Chloride 0.9% (Flush) Syringe IV 12/28/24 17:59
PER PROTOCOL JAVIER
Warfarin Sodium 3 mg 11/30/24 18:00 11/30/24 18:32
Warfarin 3 Mg Tablet PO 12/05/24 17:59 3 mg
QPM JAVIER Administration
[2024-12-01 09:52] LABS: VerifyNow Aspirin 562 ARU
--- NOTE | 2024-12-01 12:58 | CARDSERVLU ---
Echocardiogram with [facility] completed after protocol screening completed. Allergies verified.
Patent IV site: _Right arm median cephalic 18 G PC____
IV site flushed with 0.9% NaCl pre and post administration.
Diluted bolus method utilized to enhance visualization of ventricular bonilla.
Total volume given: __2.5__ mL
Patient tolerated all procedures well without complications.
[2024-12-01 13:15] VITALS: BP 127/76
[2024-12-01 15:00] VITALS: BP 101/63
--- NOTE | 2024-12-01 15:20 | CM ---
Per physician resident, patient will d/c if all imaging is negative, awaiting one more test results.
Patient seen bedside w/ sons. Initial assessment completed. Patient is a 69 yo M PMH of recurrent strokes/TIAs, mitral valve repair on warfarin (INR 3.0), HTN, HLD, peripheral neuropathy reports left arm weakness.
Patient is a LTC resident at [facility]. Patient is independent w/ the use of a cane. Patient is independent w/ ADLs, does require supervision for showering. Patient works w/ PT at facility. Patient has a son who is the medical POA, very
involved w/ patient.
PCP: Rusty Mclain
Pharmacy: [facility]
Therapy assessed, patient is appropriate to return to facility and continue w/ PT
Son requesting to speak w/ resident prior to patient discharging, made resident aware of this. Per son, he is unable to transport patient as his car is too high and does not feel comfortable doing the transport. Son asking if [employer] can assist w/
transporting patient back, if not, he agreeable to a w/c van.
Spoke w/ Liz/Keturah fermin regarding transport back. Liz mentioned she will call CM back once she is able to confirm if a van will be available to transport patient.
IMM verbally reviewed, copy provided, copy on chart
[facility]
Report: [phone]

Plan: Return to [facility]
--- NOTE | 2024-12-01 16:04 | PTOTSP ---
Speech Therapy Evaluation:
Pt with chronic risk factors of dysphagia including recurrent strokes/TIAs. Pt without dysphagia hx and oropharyngeal swallow appeared WFL at bedside. MRI negative for acute infarct. No chest imaging completed, however WBC WNL, pt afebrile, and on
room air.
Recommend:
1. Continue regular solids and thin liquids
2. Medications as tolerated
3. General aspiration precautions
4. LEAD CLINICAL RESEARCH COORDINATOR to s/o - please reconsult as indicated
[2024-12-01] MEDS: APRESOLINE PO (16:17)
[2024-12-01] MEDS: COUMADIN 3 MG PO (17:12)
[2024-12-01] MEDS: LIPITOR 20 MG PO (17:13)
--- NOTE | 2024-12-01 17:57 | W.DCSUMMARY ---
Addendum entered and electronically signed by Arnaud Apodaca MD 12/01/24 22:50:
Read, reviewed, and agree. See same day progress note for additional details. D/W Neuro stable for DC.
Dav Apodaca MD
Original Note:
Documented by User: Rodger Smith MD, Resident 12/01/24 18:16
Discharge Summary
Discharge Data
Date of Admission: 11/30/24
Date of Discharge: 12/01/24
-
Pending Results: No
Hospital Course
Discharging Physician : Arnaud Apodaca MD; Rodger Smith MD
Disposition : SNF
Primary care physician : Dr. Rusty Mclain
Principal Discharge diagnosis : Cervical spinal stenosis
Chronic Discharge diagnosis : Recurrent TIA/CVA, HTN, HLD, peripheral neuropathy, CKD stage 3 (as listed on patient's record paper), paroxysmal atrial fibrillation, major depressive disorder, osteoarthritis, LIZETH, mitral valve repair (2014)
Hospital Course :
69 yo M PMH of recurrent strokes/TIAs, mitral valve repair on warfarin (INR 3.0), HTN, HLD, peripheral neuropathy reports left arm weakness at ~11:00 AM today. That being said, he also endorses that his left arm has been weaker than the right
chronically now. Additional PMH includes CKD 3, paroxysmal atrial fibrillation, major depressive disorder, osteoarthritis, LIZETH
The arm weakness occurred while he was doing rehabilitation exercises (exercise bike) at the SNF/rehab facility. He also reports that he had a facial droop that has been on/off over the past week. He otherwise denies weakness anywhere else or
diminished sensation, apart from peripheral neuropathy. He denies any chest pain, palpitations, dyspnea. He denies any difficulty with bowel/bladder function or incontinence.
In the ED, head CT noncontrast was done, as was EKG and troponin check. Head CT noncontrast did not disclose acute intracranial abnormality (see below). EKG showed sinus rhythm, and troponin was normal reassuring against ACS. Neurology was
consulted.
The following day (12/01), the patient reports feeling significantly better, and he reports that the numbness and weakness has improved. However, brain MRI and CTA Head/Neck revealed severe spinal stenosis which can explain the patient's symptoms.
Brain MRI (full results below) did not show evidence of an acute or subacute infarct but however did reveal concern for microbleeds. CTA also noted occlusion of vertebral artery and a patent stent in R ICA (full report below).
Given that the patient reported a history of mitral valve repair, a TTE was performed which was largely unremarkable (full report below).
Of note, his son, Raza is medical power of supervisor car installations.
During this admission, the following problems were addressed:
# Left arm weakness most likely due to cervical spinal stenosis
- MRI brain no evidence of acute or subacute infarct but showed concern for microbleeds/amyloid angiopathy
- CTA Head/neck shows vessel occlusion of right vertebral but severe spinal cord compression and central canal stenosis at C5/C6.
- ultimately, the likely etiology of the initial presentation is the cervical spinal stenosis (weakness, numbness and tingling in L arm)
- In consultation with neurology, the following recommendations were provided:
- discontinue aspirin given warfarin use, risk of hemorrhage
- continue atorvastatin
- continue warfarin
- lisinopril is being held until he follows-up BMP outpatient and with PCP given creatinine of 1.5
- recommend follow-up with neurosurgery/spinal surgery and neurology in outpatient setting and outpatient MRI cervical spine.
# Paroxysmal atrial firbillation
# history of mitral valve repair - reported by patient
- his home warfarin dose was continued during the admission
# Chronic issues
HTN - his home meds coreg, lasix, hydralazine were continued; lisinopril was held given elevated creatinine
HLD - home atorvastatin was continued
MDD - home duloxetine was continued
Peripheral neuropathy - home gabapentin was continued
# Discharge recommendations
The patient was advised to follow-up closely with spinal surgery to evaluate cervical spinal stenosis and obtain outpatient cervical MRI.
He was also counselled to follow-up with neurology.
In terms of follow-up labs, he was advised to repeat INR at his SNF. He reports that the SNF manages his warfarin dosing.
He was also counseled to not take lisinopril given elevated creatinine until he has a repeat BMP in 1 week and follow-ups with his outpatient.
Notable labs at discharge include
INR 3.0
Na 143
K 4.3
Cr 1.5
Lipid panel:
Triglycerides 196
total cholesterol 134
LDL 62
VLDL 39
HDL 33
HbA1c 5.2%
Troponin 0.013
Important imaging findings :
Head CT noncontrast 11/30/2024:
IMPRESSION:
Focal areas of old infarction as described.
Atrophy and leukomalacia.
No CT evidence for acute intracranial abnormality.
If there is high clinical concern for acute to subacute infarction and further imaging evaluation is desired, consideration for MRI of the brain.
Brain MRI 12/01/2024:
IMPRESSION: No evidence for acute to subacute infarction.
Multiple regions of old infarction as described.
Mild to moderate atrophy. Moderate to severe T2 and FLAIR white matter hyperintensities, commonly seen with aging and usually attributed to small vessel ischemic disease.
Numerous foci of cerebral microbleeds. Patient has a reported history of Coumadin therapy.
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
CTA Head neck 12/01/2024:
NECK CTA:
1. COMPLETE OCCLUSION of the distal V3 extradural segment of the RIGHT VERTEBRAL ARTERY.
2. Severe hypoplasia of the entire cervical segment of the right vertebral artery.
3. Less than 50% diameter stenosis in the dominant left vertebral artery.
4. Patent stent in the proximal right ICA.
5. Less than 50% diameter stenosis in the proximal left ICA.
6. SEVERE SPINAL CORD COMPRESSION and central canal stenosis at C5/C6.
7. Moderate spinal cord compression and central canal stenosis at C3/C4 and C4/C5.
8. Severe bilateral neural foraminal narrowing at C3/C4, C4/C5, and C5/C6.
HEAD CTA:
1. 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
2. Severe calcific atherosclerotic plaque in the left intracranial vertebral artery.
3. Moderate calcific atherosclerotic plaque in the intracranial ICAs.
4. No CTA evidence for anterior, middle, or posterior cerebral artery stenosis or occlusion.
5. Severe white matter leukoaraiosis in the frontal and parietal lobes.
6. Small chronic transcortical infarct in the anterolateral right frontal lobe.
7. Chronic lacunar infarcts in the left putamen and in both thalami.
8. Tiny chronic infarcts in both cerebellar hemispheres.
9. Mild diffuse cerebral and cerebellar volume loss.
Procedure findings :
Echocardiogram 12/01/2024:
TTE 12/01/2024:
SUMMARY
1. Normal left ventricular size, wall thickness and systolic function. No regional wall motion abnormalities are seen.
2. Left ventricular systolic function is 55-60% by visual assesment.
3. Mild aortic stenosis.
EKG 11/30/2024:
SINUS RHYTHM
PREMATURE ATRIAL COMPLEXES
RIGHT BUNDLE BRANCH BLOCK
Discharge Plan
-
Patient Disposition: Detention/SNF
Discharge Diagnosis/Procedures: Cervical spinal stenosis
Condition: Fair
Diet: Low Cholesterol
Activity: As tolerated
Driving Restrictions: As prior to admission
Bathing Restrictions: None
Blood Work: Please repeat INR 12/02/2024
Please obtain BMP blood work by 12/08/2024.
Referrals:
Jae Somers MD [Active, Neurology] - in four to six weeks
Rusty Mclain MD [Family Provider]
Daisy Luo MD [Active, Neurosurgery] - in one to two weeks
Additional Discharge Medication Instructions: Please hold lisinopril until you see your family doctor.
Please STOP Aspirin per recommendation from Neurology.
Please follow-up with Neurosurgery.
Prescriptions:
Continued
furosemide [Lasix] 40 mg Tablet
40 mg PO DAILY
carvedilol [Coreg] 25 mg Tablet
25 mg PO BID
acetaminophen [Tylenol] 325 mg Tablet
650 mg PO Q4HPRN PRN (Reason: mild pain)
atorvastatin [Lipitor] 20 mg Tablet
20 mg PO QPM
albuterol sulfate 2.5 mg /3 mL (0.083 %) Solution For Nebulization
2.5 mg INHALATION R Q6HPRN PRN (Reason: sob)
hydralazine 25 mg Tablet
25 mg PO TID
warfarin 3 mg Tablet
3 mg PO QPM
magnesium hydroxide [Milk of Magnesia] 400 mg/5 mL Suspension
2,400 mg PO [id number] PRN (Reason: constipation)
bisacodyl [Dulcolax (bisacodyl)] 10 mg Suppository
10 mg CO DAILYPRN PRN (Reason: if no bm aftr mom)
Fleet Enema 19-7 gram/118 mL Enema
118 ml CO DAILYPRN PRN (Reason: if no bm aftr dulcalax)
gabapentin 300 mg Capsule
300 mg PO TID
cholecalciferol (vitamin D3) [Vitamin D3] 125 mcg (5,000 unit) Tablet
125 mcg PO TH
menthol-zinc oxide [Moisture Barrier Ointment] 0.44-20.6 % Ointment
1 applic TOPICAL TIDPRN PRN (Reason: sacrum)
omega 5-inc-uao-fish oil 900-1,400 mg Capsule,Delayed Release(Dr/Ec)
1 cap PO DAILY
duloxetine 30 mg Capsule, Delayed Rel Sprinkle
30 mg PO BID
Held
lisinopril 5 mg Tablet
5 mg PO DAILY
Hold Instructions: Resume on 12/11/24. Please follow-up with PCP before restarting lisinopril.
Discontinued
aspirin 81 mg Tablet,Delayed Release (Dr/Ec)
81 mg PO DAILY
Discharge Orders:
Discharge Patient (As Directed); Ordered 12/01/24
Ordered By: Rodger Smith
Discharge Date and Time
Discharge Date/Time: 12/01/24 19:24
Print Language: EGYPTIAN

Documented by User: Arnaud Apodaca MD 12/01/24 22:49
Discharge Summary
Discharge Data
Date of Admission: 11/30/24
Date of Discharge: 12/01/24
Discharge Plan
-
Patient Disposition: Detention/SNF
Discharge Diagnosis/Procedures: Cervical spinal stenosis
Condition: Fair
Diet: Low Cholesterol
Activity: As tolerated
Driving Restrictions: As prior to admission
Bathing Restrictions: None
Blood Work: Please repeat INR 12/02/2024
Please obtain BMP blood work by 12/08/2024.
Referrals:
Jae Somers MD [Active, Neurology] - in four to six weeks
Rusty Mclain MD [Family Provider]
Daisy Luo MD [Active, Neurosurgery] - in one to two weeks
Additional Discharge Medication Instructions: Please hold lisinopril until you see your family doctor.
Please STOP Aspirin per recommendation from Neurology.
Please follow-up with Neurosurgery.
Prescriptions:
Continued
furosemide [Lasix] 40 mg Tablet
40 mg PO DAILY
carvedilol [Coreg] 25 mg Tablet
25 mg PO BID
acetaminophen [Tylenol] 325 mg Tablet
650 mg PO Q4HPRN PRN (Reason: mild pain)
atorvastatin [Lipitor] 20 mg Tablet
20 mg PO QPM
albuterol sulfate 2.5 mg /3 mL (0.083 %) Solution For Nebulization
2.5 mg INHALATION R Q6HPRN PRN (Reason: sob)
hydralazine 25 mg Tablet
25 mg PO TID
warfarin 3 mg Tablet
3 mg PO QPM
magnesium hydroxide [Milk of Magnesia] 400 mg/5 mL Suspension
2,400 mg PO [id number] PRN (Reason: constipation)
bisacodyl [Dulcolax (bisacodyl)] 10 mg Suppository
10 mg CO DAILYPRN PRN (Reason: if no bm aftr mom)
Fleet Enema 19-7 gram/118 mL Enema
118 ml CO DAILYPRN PRN (Reason: if no bm aftr dulcalax)
gabapentin 300 mg Capsule
300 mg PO TID
cholecalciferol (vitamin D3) [Vitamin D3] 125 mcg (5,000 unit) Tablet
125 mcg PO TH
menthol-zinc oxide [Moisture Barrier Ointment] 0.44-20.6 % Ointment
1 applic TOPICAL TIDPRN PRN (Reason: sacrum)
omega 7-phk-aov-fish oil 900-1,400 mg Capsule,Delayed Release(Dr/Ec)
1 cap PO DAILY
duloxetine 30 mg Capsule, Delayed Rel Sprinkle
30 mg PO BID
Held
lisinopril 5 mg Tablet
5 mg PO DAILY
Hold Instructions: Resume on 12/11/24. Please follow-up with PCP before restarting lisinopril.
Discontinued
aspirin 81 mg Tablet,Delayed Release (Dr/Ec)
81 mg PO DAILY
Discharge Orders:
Discharge Patient (As Directed); Ordered 12/01/24
Ordered By: Rodger Smith
Discharge Date and Time
Discharge Date/Time: 12/01/24 19:24
Print Language: EGYPTIAN
== END 2024-12-01 19:24 | DRG 552 ==
LOC: 4 WEST ACU 16:29
PROVIDERS: Nurse Practitioner; Physician Assistant; ADMITTING PHYSICIAN Family Medicine; CONSULT PHYSICIAN Psychiatry & Neurology Neurology; EMERGENCY PHYSICIAN Emergency Medicine; FAMILY PHYSICIAN Internal Medicine
DX: M48.02 Spinal stenosis, cervical region (principal); G99.2 Myelopathy in diseases classified elsewhere; I13.0 Hypertensive heart and chronic kidney disease with heart failure and stage 1 through stage 4 chronic kidney disease, or unspecified chronic kidney disease; I50.32 Chronic diastolic (congestive) heart failure; Z86.73 Personal history of transient ischemic attack (TIA), and cerebral infarction without residual deficits; N18.30 Chronic kidney disease, stage 3 unspecified; G62.9 Polyneuropathy, unspecified; I48.0 Paroxysmal atrial fibrillation; F32.9 Major depressive disorder, single episode, unspecified; G47.33 Obstructive sleep apnea (adult) (pediatric); R29.810 Facial weakness; I65.09 Occlusion and stenosis of unspecified vertebral artery; Z79.01 Long term (current) use of anticoagulants; Z87.891 Personal history of nicotine dependence; E78.00 Pure hypercholesterolemia, unspecified; G93.89 Other specified disorders of brain; I45.10 Unspecified right bundle-branch block; I49.1 Atrial premature depolarization; I65.22 Occlusion and stenosis of left carotid artery; R29.701 NIHSS score 1; R29.703 NIHSS score 3; Z79.82 Long term (current) use of aspirin; Z95.2 Presence of prosthetic heart valve
CPT/HCPCS: 70450; 70496; 70498; 70551; 80048; 80053; 80061; 83036; 84484; 85025; 85027; 85576; 85610; 85652; 85730; 86803; 87070; 92610; 93005; 93306; 97163; 97167; 99285; Q9967

== ENCOUNTER → 2025-03-30 12:08 | Outpatient (REF) | payer MEDICARE, OTHER, SELFPAY ==
[2025-03-30 12:50] VITALS: BP 107/74; BP_SYST 63
[2025-03-30 13:04] LABS: INR 2.78; PT 29.6 Sec (11.4-14.6)
== END ==
LOC: RADI 12:08
PROVIDERS: ATTENDING PHYSICIAN Otolaryngology; FAMILY PHYSICIAN Internal Medicine; OTHER PHYSICIAN Physician Assistant
DX: K11.8 Other diseases of salivary glands (principal)
CPT/HCPCS: 36415; 42400; 76942; 85610; 88173; 88305

== ENCOUNTER → 2025-04-27 07:46 | Outpatient (REF) | payer MEDICARE, OTHER, SELFPAY ==
[2025-04-27 08:28] LABS: INR 1.62; PT 19.4 Sec (11.4-14.6)
[2025-04-27 09:25] VITALS: BP 140/91; BP_SYST 68
== END ==
LOC: RADI 07:46
PROVIDERS: ATTENDING PHYSICIAN Otolaryngology
DX: K11.8 Other diseases of salivary glands (principal)
CPT/HCPCS: 36415; 42400; 76942; 85610; 88173; 88305